=== PATIENT | female | born 1965 | race Caucasian/White ===

== ENCOUNTER 2017-09-28 11:51 | Emergency (ER) | payer OTHER ==
[~2017-09-28] VITALS: Ht 152.4 cm; Wt 47.6 kg
[~2017-09-28 11:51] MED LIST: AMOXICILLIN500 MG PO; CELEXA40 MG PO; COQ-1030 MG PO; DETOX PO; GABAPENTIN300 MG PO; IBUPROFEN800 MG PO; MULTI VITAMIN1 EACH PO; PERCOCET 5-3251 EACH PO; PRILOSEC20 MG PO; PROVERA10 MG PO; SINEMET CR 25-1 EACH PO; TRAZODONE HCL50 MG PO; VICODIN 5-5001 EACH PO
[2017-09-28] MEDS ORDERED: MELATONIN3 M2 PO (12:02)
[2017-09-28] MEDS ORDERED: VITAMIN D350000 UNIT PO (12:03)
[2017-09-28] MEDS ORDERED: XANAX0.25 MG PO (12:07)
== END 2017-09-28 12:35 | disposition home or self-care (01) ==
LOC: ED 11:51
DX: F41.9 Anxiety disorder, unspecified (principal); G20 Parkinson's disease; Z88.2 Allergy status to sulfonamides; Z88.6 Allergy status to analgesic agent; Z88.5 Allergy status to narcotic agent; Z90.89 Acquired absence of other organs; Z98.890 Other specified postprocedural states
CPT/HCPCS: 99282

== ENCOUNTER 2018-05-11 12:14 | Emergency (ER) | payer OTHER ==
[~2018-05-11] VITALS: Ht 152.4 cm; Wt 46.7 kg
[~2018-05-11 12:14] MED LIST changes: +MELATONIN3 M2 PO; +VITAMIN D350000 UNIT PO; +XANAX0.25 MG PO
[2018-05-11] MEDS ORDERED: NORCO 7.5-3251 EACH PO (15:46)
== END 2018-05-11 16:13 | disposition home or self-care (01) ==
LOC: ED 12:14
DX: G12.21 Amyotrophic lateral sclerosis (principal); M54.41 Lumbago with sciatica, right side; Z88.2 Allergy status to sulfonamides; Z88.8 Allergy status to other drugs, medicaments and biological substances; Z88.5 Allergy status to narcotic agent; Z79.899 Other long term (current) drug therapy
CPT/HCPCS: 80053; 81001; 85025; 96360; 96361; 99284; J7030

== ENCOUNTER 2018-06-17 12:32 | Emergency (ER) | payer OTHER ==
[~2018-06-17] VITALS: Ht 152.4 cm; Wt 46.7 kg
--- OUTSIDE RECORDS SUMMARY | ~2018-06-17 | XMS | Encounter Summary ---
Demographics + + + | Address | [address] | | | [place] [address] | + + + | Home Phone | | + + + | Preferred Language | Unknown | + + + | Marital Status | Unknown | + + + | Buddhism Affiliation | Unknown | + + + | Race | Unknown | + + + | Ethnic Group | Unknown | + + + Author + + + | Author | [facility] | | | and [place] | + + + | Organization | [facility] | | | and [place] | + + + | Address | Unknown | + + + | Phone | Unavailable | + + + Support + + +---------+ + | Name | Relationship | Address | Phone | + + +---------+ + | Sam Nino | ALVA | Unknown | | | [place] | | | | + + +---------+ + Care Team Providers + +------+ + | Care Rn Cardiac Cath Name | Role | Phone | + +------+ + | Blanca Durand PA-C | PCP | | + +------+ + Encounter Details +--------+ + + + + | Date | Type | Department | Care Team | Description | +--------+ + + + + | 06/09/ | Ancillary | [facility] | Provider, | | | 2018 | Orders | [facility] | [facility] [address] | | | | | IMAGING | [place] | | | | | [phone] | [place] [address] | | +--------+ + + + + Social History + +-------+ +--------+------+ | Tobacco Use | Types | Packs/Day | Years | Date | | | | | Used | | + +-------+ +--------+------+ | Never Assessed | | | | | + +-------+ +--------+------+ + + + | Sex Assigned at | Date Recorded | | | | + + + | Not on file | | + + + as of this encounter Plan of Treatment Not on fileas of this encounter Results XR Lumbar Spine 4 + Vw (02/23/2018 1125) + + + | Narrative | Performed At | + + + | External films for comparison only | [facility] | | | | | No results will be in the chart. | | + + + + +---------+ + + | Performing | Address | City/State/Zipcode | Phone Number | | Organization | | | | + +---------+ + + | [facility] | | | | + +---------+ + + XR Hip Right 2-3 Views (02/23/20181119) + + + | Narrative | Performed At | + + + | External films for comparison only | [facility] | | | | | No results will be in the chart. | | + + + + +---------+ + + | Performing | Address | City/State/Zipcode | Phone Number | | Organization | | | | + +---------+ + + | [facility] | | | | + +---------+ + + in this encounter Visit Diagnoses Not on filein this encounter"
--- OUTSIDE RECORDS SUMMARY | ~2018-06-17 | XMS | Clinical Summary ---
Demographics + + + | Address | [address] | | | [place] [address] | + + + | Home Phone | | + + + | Preferred Language | Unknown | + + + | Marital Status | Unknown | + + + | Buddhist Affiliation | Unknown | + + + | Race | Unknown | + + + | Ethnic Group | Unknown | + + + Author + + + | Author | [facility] | | | and [place] | + + + | Organization | [facility] | | | and [place]aiseana | [...] Team Providers + +------+ + | Care Safety Technician Name | Role | Phone | + +------+ + | Blanca Durand PA-C | PP | | + +------+ + Allergies Not on File Current Medications Not on file Active Problems Not on file Encounters +--------+ + + + + | Date | Type | Specialty | Care Team | Description | +--------+ + + + + | 06/09/ | Ancillary | | Provider, | | | 2018 | Orders | | [facility] | | +--------+ + + + + | 04/23/ | Telephone | | Justo Aguirre | Other | | 2018 | | | MD Pr[facility] | | +--------+ + + + + from Last 3 Months Social History + +-------+ +--------+------+ | Tobacco [...] on file | | + + + Plan of Treatment + + + + + | Health Maintenance | Due Date | Last Done | Comments | + + + + + | Vaccine: | | | | | Dtap/Tdap/Td (1 - | 7 | | | | Tdap) | | | | + + + + + | Cervical Cancer | | | | | Screening (Pap) | 8 | | | + + + + + | BREAST CANCER | | | | | SCREENING (MAMM Q2 | 8 | | | | YEARS 50-74) | | | | + + + + + | Colorectal Cancer | | | | | Screening | 8 | | | | (Colonoscopy) | | | | + + + + + | Vaccine: Influenza | | | | | (#1) | 8 | | | + + + + + Results Not on filefrom Last 3 Months Insurance + +--------+ +--------+ +---------+ | Payer | Benefi | Subscriber | Type | Phone | Address | | | t Plan | ID | | | | | | / | | | | | | | Group | | | | | + +--------+ +--------+ +---------+ | [employer] | PHP | [id number] | PPO | [phone] | | | PLAN | PERSON | | | [phone] | | | | [place] | | | | | | | OPEN | | | | | | | OPTION | | | | | + +--------+ +--------+ +---------+ | [employer] | MODA | [id number] | Medica | [id number] | | MEDICAID HMO | HEALTH | | id | [id number] | | | | MDCD | | | | | | | HMO [place] | | | | | + +--------+ +--------+ +---------+ + +--------+ +--------+ + + | Guarantor Name | Accoun | Relation to | Date | Phone | Billing Address | | | t Type | Patient | of | | | | | | | | | | + +--------+ +--------+ + + | YORDY NINO | Person | Self [birth year] | Work: | [address] | | | al/[place] | | 1966 | [phone] | [place] [address] | | | [place] | | | [phone]: | | | | | | | | | | | | | | [phone] | | | | | | | [phone] | | + +--------+ +--------+ + +"
--- OUTSIDE RECORDS SUMMARY | ~2018-06-17 | XMS | Clinical Summary ---
Demographics + + + | Address | [address] | | | [place] [address] | + + + | Home Phone | | + + + | Preferred Language | Unknown | + + + | Marital Status | Unknown | + + + | Adventism Affiliation | Unknown | + + + | Race | Unknown | + + + | Ethnic Group | Unknown | + + + Author + + + | Author | [facility] | | | and [place] | + + + | Organization | [facility] | | | and [...] Team Providers + +------+ + | Care Table Cut Off Saw Operator Name | Role | Phone | + [...] +---------+ | [employer] | PHP | [phone] | PPO | [phone] | | | PLAN | PERSON | | | [phone] | | | | [place] | | | | | | | OPEN | | | | | | | OPTION | | | | | + +--------+ +--------+ +---------+ | [employer] | MODA | [id number] | Medica | [phone] | | | MEDICAID HMO | HEALTH [...] | | al/Sung | | 1966 | [phone] | [place] [address] | | | [place] | | | [phone] Home: | | | | | | | | | | | | | | [phone] | | | | | | | [phone] | | + +--------+ +--------+ + +"
--- OUTSIDE RECORDS SUMMARY | ~2018-06-17 | XMS | Encounter Summary ---
Demographics + + + | Address | [address] | | | [place] [address] | + + + | Home Phone | | + + + | Preferred Language | Unknown | + + + | Marital Status | Unknown | + + + | Anabaptist Affiliation | Unknown | + + + | Race | Unknown | + + + | Ethnic Group | Unknown | + + + Author + + + | Author | [facility] | | | and [place] | + + + | Organization | [facility] | | | and [place] | + + + | Address | Unknown | + + + | Phone | Unavailable | + + + Support + + +---------+ + | Name | Relationship | Address | Phone | + + +---------+ + | aSm Nion | ALVA | Unknown | | | [place] | | | | + + +---------+ + Care Team Providers + +------+ + | Care Video Game Developer Name | Role | Phone | + +------+ + | Blanca Durand PA-C | PCP | | + +------+ + Reason for Visit +--------+ + | Reason | Comments | +--------+ + | Other | | +--------+ + Encounter Details +--------+ + + + + | Date | Type | Department | Care Team | Description | +--------+ + + + + | 04/23/ | Telephone | [facility] | Justo Aguirre | Other | | 2017 | | PHYSIATRY [address] | | | | | [place], | [place], [place] | | | | | [place] [address] | [address] | | | | | [phone] | | | +--------+ + + + + [...] Treatment Not on fileas of this encounter Visit Diagnoses Not on filein this encounter"
--- OUTSIDE RECORDS SUMMARY | ~2018-06-17 | XMS | Encounter Summary ---
Demographics + + + | Address | [address] | | | [place] [address] | + + + | Home Phone | | + + + | Preferred Language | Unknown | + + + | Marital Status | Unknown | + + + | Bahai Affiliation | Unknown | + + + | Race | Unknown | + + + | Ethnic Group | Unknown | + + + Author + + + | Author | [facility] | | | and [place] | + + + | Organization | [facility] | | | and [place]ana [...] Team Providers + +------+ + | Care Clinical Exercise Physiologist Name | Role | Phone | + [...] [address] | | | | | [place], | [place], [place] | | | | | [place] [address] | [address] | | | | | [phone] | | | +--------+ + + + [...]
--- OUTSIDE RECORDS SUMMARY | ~2018-06-17 | XMS | Encounter Summary ---
Demographics + + + | Address | [address] | | | [place] [address] | + + + | Home Phone | | + + + | Preferred Language | Unknown | + + + | Marital Status | Unknown | + + + | Mormon Affiliation | Unknown | + + + | Race | Unknown | + + + | Ethnic Group | Unknown | + + + Author + + + | Author | [facility] | | | and [place] | + + + | Organization | [facility] | | | and [place] | [...] Team Providers + +------+ + | Care Raw Silk Grader Name | Role | Phone | + [...] [address] | | | | | [phone] | [place] [address] | | +--------+ + + + + [...]
[~2018-06-17 12:32] MED LIST changes: +NORCO 7.5-3251 EACH PO
== END 2018-06-17 18:35 | disposition home or self-care (01) ==
LOC: ED 12:32
DX: F41.9 Anxiety disorder, unspecified (principal); G20 Parkinson's disease; Z88.2 Allergy status to sulfonamides; Z88.6 Allergy status to analgesic agent; Z88.5 Allergy status to narcotic agent; Z79.899 Other long term (current) drug therapy
CPT/HCPCS: 80053; 81001; 85025; 96361; 96374; 99283; J2060; J7040

== ENCOUNTER 2019-02-12 07:01 | Emergency (ER) | payer BC, OTHER ==
[~2019-02-12] VITALS: Ht 152.4 cm; Wt 56.7 kg
--- OUTSIDE RECORDS SUMMARY | ~2019-02-12 | XMS | Clinical Summary ---
Demographics + + + | Address | [address] | | | [place] [address] | + + + | Home Phone | | + + + | Preferred Language | Unknown | + + + | Marital Status | Unknown | + + + | Baptism Affiliation | Unknown | + + + | Race | Unknown | + + + | Ethnic Group | Unknown | + + + Author + + + | Author | [facility] | | | and [place] | + + + | Organization | [facility] | | | and Blaiseana [...] Team Providers + +------+ + | Care Education Department Chair Name | Role | Phone | + +------+ + | Blanca Durand PA-C | PP | | + +------+ + Allergies Not on File Medications Not on file Active Problems Not on file Social History + +-------+ +--------+------+ | Tobacco [...] on file | | + + + + + + + | Job Start Date | Occupation | Industry | + + + + | Not on file | Not on file | Not on file | + + + + + + + + | Travel History | Travel Start | Travel End | + + + + + + | No recent travel history available. | + + Plan of Treatment + + [...] | + + + + + | Breast Cancer | | | | | Screening (Ages | 8 | | | | 50-74) | | | | + + + + + | Colorectal Cancer | | | | | Screening | 8 | | | | (Colonoscopy) | | | | + + + + + | Vaccine: Zoster (1 | | | | | of 2) | 8 | | | + + + + + | Vaccine: Influenza | | | | | (Season Ended) | 9 | | | + + + + + Results Not on filefrom Last 3 Months Insurance + +--------+ +--------+ +---------+--------+ | Payer | Benefi | Subscriber | Effect | Phone | Address | Type | | | t Plan | ID | kia | | | | | | / | | Dates | | | | | | Group | | | | | | + +--------+ +--------+ +---------+--------+ | [employer] | PHP | [id number] | 10/05/19 | [phone] | | PPO | | PLAN | PERSON | | 18-Pre | 5 | | | | | [place] | | sent | | | | | | OPEN | | | | | | | | OPTION | | | | | | + +--------+ +--------+ +---------+--------+ | [employer] | MODA | [id number] | | [phone] | | Medica | | MEDICAID HMO | HEALTH | | 018-Pr | 1 | | id | | | MDCD | | esent | | | | | | HMO [place] | | | | | | + +--------+ +--------+ +---------+--------+ + +--------+ +--------+ + + | Guarantor Name | Accoun | Relation to | Date | Phone | Billing Address | | | t Type | Patient | of | | | | | | | | | | + +--------+ +--------+ + + | Guera Nino | Person | Self | [birth year] | [address] | | | al/Fam | | 1966 | [phone] | [place] [address] | | | [place] | | | 6 (Home) | | | | | | | [phone] | | | | | | | 0 (Work) | | + +--------+ +--------+ + + Advance Directives Patient has advance care planning documents on file. For more information, please contact:[place] [address]"
--- OUTSIDE RECORDS SUMMARY | ~2019-02-12 | XMS | Clinical Summary ---
Demographics + + + | Address | [address] | | | [place] [address] | + + + | Home Phone | | + + + | Preferred Language | Unknown | + + + | Marital Status | Unknown | + + + | Mormon Affiliation | Unknown | + + + | Race | Unknown | + + + | Ethnic Group | Unknown | + + + Author + + + | Author | [facility] | | | and [place] | + + + | Organization | [facility] | | | and Bla[place]ana [...] Team Providers + +------+ + | Care Bowling Alley Mechanic Name | Role | Phone | + [...] +---------+--------+ | [employer] | PHP | [phone] | 10/05/19 | [phone] | | PPO | | PLAN | PERSON | | 18-Pre | 5 | | | | | [place] | | sent | | | | | | OPEN | | | | | | | | OPTION | | | | | | + +--------+ +--------+ +---------+--------+ | [employer] | MODA | [id number] | | [phone] | | Medica | | MEDICAID HMO [...] | | al/Fam | | 1966 | [phone] | [place] [address] | | | [place] | | | 6 (Home) | | | | | | | [phone] | | | | | | | 0 (Work) | | + +--------+ +--------+ + + Advance Directives Patient has advance care planning documents on file. For more information, please contact:[facility] [place] [address]"
--- OUTSIDE RECORDS SUMMARY | 2019-02-12 07:04 | XMS ---
PreManage Notification: YORDY BELTRE Security Marketing Designer Events No recent Security Events currently on file CRITERIA MET - SAM CARE PROVIDERS Pepito Jane Forest Ranger/Fur Operator 12/31/2018-Current PHONE: [phone] Pepito Jane Primary Care 12/31/2018-Current PHONE: [phone] Rufino has no Care Guidelines for this patient. EMouna VISIT COUNT (12 MO.) 3 TORIE Cohn TOTAL 3 NOTE: Visits indicate total known visits. ED/UCC VISIT TRACKING (12 MO.) 02/12/2019 07:01 [facility] [place] TYPE: Emergency COMPLAINT: - FALL 06/17/2018 12:33 [facility] [place] TYPE: Emergency COMPLAINT: - BODY ACHES DIAGNOSES: - Anxiety disorder, unspecified - Allergy status to narcotic agent status - Other mcc (current) drug therapy - Allergy status to analgesic agent status - Parkinson's disease - Restlessness and agitation - Allergy status to sulfonamides status 05/11/2018 12:15 [facility] [place] TYPE: Emergency COMPLAINT: - NUMBNESS/TINGLING IN ARMS DIAGNOSES: - Allergy status to other drugs, medicaments and biological substances status - Weakness - Amyotrophic lateral sclerosis - Lumbago with sciatica, right side - Allergy status to narcotic agent status - Allergy status to sulfonamides status - Other plastics bench mechanic (current) drug therapy INPATIENT VISIT TRACKING (12 MO.) 01/26/2019 10:12 [facility] [place] TYPE: Neuro Surgery DIAGNOSES: - Spinal stenosis, lumbar region without neurogenic claudication [id number]
[2019-02-12] MEDS ORDERED: CLONAZEPAM1 MG PO (07:19)
[2019-02-12] MEDS ORDERED: NEUPRO1 EAC1 TD (07:19)
== END 2019-02-12 09:47 | disposition home or self-care (01) ==
LOC: ED 07:01
DX: S39.012A Strain of muscle, fascia and tendon of lower back, initial encounter (principal); G20 Parkinson's disease; Z88.2 Allergy status to sulfonamides; Z88.6 Allergy status to analgesic agent; Z88.5 Allergy status to narcotic agent; W01.198A Fall on same level from slipping, tripping and stumbling with subsequent striking against other object, initial encounter
CPT/HCPCS: 72100; 99283

== ENCOUNTER 2019-12-27 12:37 | Emergency (ER) | payer BC, OTHER ==
[~2019-12-27] VITALS: Ht 152.4 cm; Wt 56.7 kg
[~2019-12-27 12:37] MED LIST changes: +CLONAZEPAM1 MG PO; +NEUPRO1 EAC1 TD
--- OUTSIDE RECORDS SUMMARY | 2019-12-27 12:40 | XMS ---
PreManage Notification: YORDY BELTRE Security Cuprous Chloride Helper Events No recent Security Events currently on file CRITERIA MET - SAM CARE PROVIDERS MARGY DIXON Physician Joint Filler Current PHONE: Unknown Pepito Jane Wastewater Design Engineer/Sewing Machine Bobbin Winder 08/05/2019-Current PHONE: [phone] Pepito Jane Primary Care 08/05/2019-Current PHONE: [phone] Rufino has no Care Guidelines for this patient. E.D. VISIT COUNT (12 MO.) 2 TORIE Cohn TOTAL 2 NOTE: Visits indicate total known visits. ED/UCC VISIT TRACKING (12 MO.) 12/27/2019 12:37 [facility] [place] TYPE: Emergency COMPLAINT: - FALL 02/12/2019 07:01 [facility] [place] TYPE: Emergency COMPLAINT: - FALL DIAGNOSES: - Pain in left arm - Fall on same level from slipping, tripping and stumbling with - Allergy status to sulfonamides status - Allergy status to analgesic agent status - Allergy status to narcotic agent status - Strain of muscle, fascia and tendon of lower back, initial en - Parkinson's disease INPATIENT VISIT TRACKING (12 MO.) 01/26/2019 10:12 [facility] [place] TYPE: Neuro Surgery DIAGNOSES: - Spinal stenosis, lumbar region without neurogenic claudicatio [id number]
== END 2019-12-27 14:45 | disposition home or self-care (01) ==
LOC: ED 12:37
DX: S70.02XA Contusion of left hip, initial encounter (principal); G12.21 Amyotrophic lateral sclerosis; Z87.891 Personal history of nicotine dependence; Z88.2 Allergy status to sulfonamides; Z79.899 Other long term (current) drug therapy; W18.30XA Fall on same level, unspecified, initial encounter
CPT/HCPCS: 73502; 96374; 99283-25; A9270; J3010

== ENCOUNTER 2021-06-10 18:40 | Emergency (ER) | payer OTHER, BC ==
[~2021-06-10] VITALS: Ht 152.4 cm; Wt 43.1 kg
--- OUTSIDE RECORDS SUMMARY | 2021-06-10 18:44 | XMS ---
PreManage Notification: YORDY BELTRE Security Bleacher Kraft Pulp Events No recent Security Events currently on file CRITERIA MET - SYBIL CARE PROVIDERS MARGY DIXON Physician Management Specialist Current PHONE: Unknown Pepito Jane Inpatient Coder/Polishing Pad Mounter 04/04/2021-Current PHONE: [phone] Rufino has no Care Guidelines for this patient. [place] VISIT COUNT (12 MO.) Juliann Cohn TOTAL 1 NOTE: Visits indicate total known visits. ED/UCC VISIT TRACKING (12 MO.) 06/10/2021 18:[address] [facility] [place] TYPE: Emergency COMPLAINT: - HEAD LACERATION INPATIENT VISIT TRACKING (12 MO.) No inpatient visits to display in this time frame [email or web address]
== END 2021-06-10 22:25 | disposition home or self-care (01) ==
LOC: ED 18:40
PROC: 0HQ0XZZ Repair Scalp Skin, External Approach (ICD-10-PCS; principal; 2021-06-10)
DX: S01.01XA Laceration without foreign body of scalp, initial encounter (principal); W01.0XXA Fall on same level from slipping, tripping and stumbling without subsequent striking against object, initial encounter; G12.21 Amyotrophic lateral sclerosis; G20 Parkinson's disease; Z87.891 Personal history of nicotine dependence; Z23 Encounter for immunization; Z88.2 Allergy status to sulfonamides; Z88.5 Allergy status to narcotic agent; Z88.8 Allergy status to other drugs, medicaments and biological substances; Z79.899 Other long term (current) drug therapy; Z88.6 Allergy status to analgesic agent
CPT/HCPCS: 12001; 70450; 90471; 90715; 99283-25

== ENCOUNTER 2021-08-20 15:23 | Inpatient (IN) | payer BC, OTHER ==
[~2021-08-20] VITALS: Ht 152.4 cm; Wt 44.8 kg
--- OUTSIDE RECORDS SUMMARY | 2021-08-20 15:26 | XMS ---
PreManage Notification: YORDY BELTRE Security Fusion Analyst Events No recent Security Events currently on file CRITERIA MET - SYBIL CARE PROVIDERS MARGY DIXON Physician Metaphysician Current PHONE: Unknown Pepito Jane Auto Body Detailer/Middle School Band Teacher 04/04/2021-Current PHONE: [phone] Rufino has no Care Guidelines for this patient. [place] VISIT COUNT (12 MO.) 2 TORIE Cohn TOTAL 2 NOTE: Visits indicate total known visits. ED/UCC VISIT TRACKING (12 MO.) 08/20/2021 15:24 [facility] [place] TYPE: Emergency COMPLAINT: - POSS UTI 06/10/2021 18:41 [facility] [place] TYPE: Emergency COMPLAINT: - HEAD LACERATION DIAGNOSES: - Allergy status to analgesic agent - Fall on same level from slipping, tripping and stumbling without subsequent striking against object, initial encounter - Allergy status to narcotic agent - Unspecified injury of head, initial encounter - Encounter for immunization - Allergy status to other drugs, medicaments and biological substances - Other remote computer terminal operator (current) drug therapy - Allergy status to sulfonamides - Personal history of nicotine dependence - Parkinson's disease - Amyotrophic lateral sclerosis - Laceration without foreign body of scalp, initial encounter INPATIENT VISIT TRACKING (12 MO.) No inpatient visits to display in this time frame [id number]
[2021-08-20] MEDS ORDERED: BACLOFEN10 MG PO (17:14)
[2021-08-20] MEDS ORDERED: OMEPRAZOLE20 MG PO (17:15)
[2021-08-20] MEDS ORDERED: QUETIAPINE FUMA25 MG PO (17:15)
[2021-08-20] MEDS ORDERED: AMANTADINE100 MG PO (17:16)
[2021-08-20] MEDS ORDERED: LINZESS72 MCG PO (17:16)
[2021-08-20] MEDS ORDERED: DULOXETINE HCL30 MG PO (17:16)
--- NOTE | 2021-08-20 19:08 | EKG ---
[facility] [address] [facility] [place], [place] [address] Signed Sinus tachycardia Otherwise normal ECG No previous ECGs available Confirmed by HARPAL ISAACS MD ([id number]) on 08/20/2021 7:08:44 PM Electronically Signed By: HARPAL ISAACS MD 08/20/21 1908 PATIENT NAME: YORDY BELTRE Electrocardiogram DATE OF : 69 PHYSICIAN: HARPAL ISAACS MD REPORT #: [id number] REPORT IS CONFIDENTIAL AND NOT TO BE RELEASED WITHOUT AUTHORIZATION
--- NOTE | 2021-08-20 20:55 | NUR ---
PT ARRIVES TO ROOM 127 FROM ED, ADMITTED FOR SEPSIS/UTI. ARRIVES WITH , PT IS AWAKE AND ALERT. ASKS TO GO TO BATHROOM BEFORE GETTING INTO BED, WALKS SELF TO BATHROOM, SBA TO VOID APPROX 25ML THEN HELPED TO POSITION IN BED AND ASSESSMENT DONE. PT IS ASKING ABOUT GETTING HER NORMAL HOME MEDICATIONS, STATES HE LEGS ARE HURTING HER. LUNGS CLEAR, ON ROOM AIR. IVF STARTED, PLAN OF CARE DISCUSSED WITH PT AND HER , PLANS TO STAY THE NIGHT AND PT SEEMS SOMEWHAT ANXIOUS WHEN HE LEFT FOR 5 MINUTES AND WANTS HIM TO REMAIN CLOSE TO HER AND IN HER SIGHT. CALL LIGHTIN REACH.
--- NOTE | 2021-08-20 21:44 | NUR ---
CALL TO DR ISAACS TO UPDATE HER RE BP'S, ORDER GIVEN FOR 1L LR BOLUS. ORDER ALSO GIVEN FOR 10MEQ KCL RIDER. PT HAS GOTTEN UP AND VOIDED SCANT AMOUNTS TWICE SINCE ARRIVAL.
--- NOTE | 2021-08-20 23:00 | NUR ---
LR BOLUS COMPLETE, PT C/O NAUSEA, 4MG IV ZOFRAN GIVEN. PT VERY SLEEPY, REMAINS IN ROOM.
--- NOTE | 2021-08-20 23:26 | NUR ---
CALL TO DR ISAACS WITH LOWER BP'S, LAST BP 73/53 MAP 61, ORDER GIVEN TO TELMA RODRIGUEZ GTT.
--- NOTE | 2021-08-20 23:26 | NUR ---
CALL TO DR ISAACS WITH LOWER BP'S, LAST BP 73/53 MAP 61, ORDER GIVEN TO START LEVOPHED GTT.
--- NOTE | 2021-08-21 | NUR ---
BP'S CONTINUE TO BE 70'S OVER 50'S, LAST BP 77/57 MAP 63, LEVOPHED GTT TURNED UP TO 5MCG/MIN. HR 80'S, PT CONT TO SLEEP. SPO2 95% ON 2L/O2.
--- NOTE | 2021-08-21 00:29 | NUR ---
BP'S HAVE IMPROVED, LAST BP 102/68 MAP 79 AND HR 92. PT REMAINS SLEEPING.
--- NOTE | 2021-08-21 01:02 | NUR ---
LEVOPHED GTT TITRATED UP TO 10MCG/MIN.
--- NOTE | 2021-08-21 01:41 | NUR ---
PT CALLED TO USE BSC, UP TO VOID 300ML THEN BACK TO BED. UP UP TO 115. PT VERY DROWSY, MUMBLING AND SLURRING WORDS, EYES REMAIN SHUT WHILE UP. LAST BP 83/61, MAP 68 AND HR 110-115'S.
--- NOTE | 2021-08-21 04:20 | NUR ---
PT CALLS TO USE BSC, UP TO VOID 300ML CLEAR URINE AND THEN BACK TO BED, HR 110 WHILE UP. ASSESSMENT DONE, UNCHANGED FROM PREVIOUS.
--- NOTE | 2021-08-21 04:33 | NUR ---
POSITIVE BLOOD CULTURE RESULTS CALLED TO DR ISAACS, VERIFIED THAT SHE HAS ORDERS FOR ROCEPHIN, NO NEW ORDERS AT THIS TIME.
--- NOTE | 2021-08-21 04:54 | NUR ---
UP TO BSC AGAIN TO VOID 50ML, BACK TO BED. PT ASKS IF SHE CAN SIT UP AND WATCH TV, ASSISTED WITH TURNING ON TV ALTHOUGH SHE JUST LIES BACK WITH EYES CLOSED.
--- NOTE | 2021-08-21 05:15 | NUR ---
UP TO BSC TO VOID 100ML THEN BACK TO BED.
--- NOTE | 2021-08-21 05:32 | NUR ---
LAB IN TO DRAW
--- NOTE | 2021-08-21 07:30 | NUR ---
REPORT RECIEVED. PATIENT LAYING IN BED, IN ROOM. ASSISTED PATIENT TO COMMODE. VOIDED 40 ML OF CLEAR YELLOW URINE, BACK TO BED WITH ASSIST. C/O BACK PAIN, C/O RIGHT UPPER CHEST DISCOMFORT. VERY TEARY AND EMOTIONAL. HAVING DIFFICULTY TRACKING. DROOLING, FAMILY MEMBERS ARE IN ROOM, HELPING PATIENT WITH SECRETIONS. TALKED WITH FAMILY AND PATIENT ABOUT POC FOR DAY.
--- NOTE | 2021-08-21 08:00 | NUR ---
ASSESSMENT DONE. LUNGS ARE DIM ON RIGHT SIDE, O2 SAT ON RA HIGH 90'S . DENIES SHORTNESS OF BREATH. ABD IS MILDLY DISTENDED. HOLDING BREAKFAST.
[2021-08-21] MEDS ORDERED: CARBIDOPA-LEVO1 EAC1 PO (08:48)
--- NOTE | 2021-08-21 09:20 | NUR ---
ROUTINE MEDICATIONS GIVEN. WAS ABLE TO SWALLOW W/O CHOKING. UP TO COMMODE AGAIN TO VOID 100 ML OF CLEAR YELLOW URINE. DENIES PAINFUL URINATION. NORCO 7.5/325 PO GIVEN FOR PAIN. LEVOPHED 2 MCG/MIN IV INFUSING, WILL TITRATE PRN. FAMILY MEMBERS REMAIN IN ROOM AND HELPING WITH PATIENT. PATIENT REMAINS VERY EMOTIONAL.
--- NOTE | 2021-08-21 10:27 | NUR ---
THIS SILVER PLATER IN ROOM TO ASSIST PATIENT TO BSC. 2 FAMILY MEMBERS AT BEDSIDE AND ASSISTING WELL. PATIENT IS IMPULSIVE BUT ABLE TO STAND WITH ASSISTANCE. NEW DRAW SHEET AND PILLOWCASE PROVIDED. KPAD ALSO AT BEDSIDE WHEN NEEDED.
--- NOTE | 2021-08-21 10:49 | NUR ---
CALMER AT THIS TIME. RESTING WITH HOB ELEVATED. LEVOPHED REMAINS AT 2 MCG/MIN.
--- NOTE | 2021-08-21 11:30 | NUR ---
INCREASED RESTLESSNESS. TRYING TO GET OOB. FAMILY MEMBER ATTEMPTING TO CALM PATIENT AND KEEP HER IN BED. PATIENT IS NOT AWARE OF PLACE, TIME, EVENT. CALLS OUT HUSBANDS NAME, SHE THINKS SHE IS AT HOME. IS VERY DIFFICULT TO CONSOLE AND DIRECT. TAKING PO FLUIDS POOR. USING YANKER TIP TO SUCTION ORAL SECRETIONS PRN.
--- NOTE | 2021-08-21 12:00 | NUR ---
NO CHANGES IN ASSESSMENT.
--- NOTE | 2021-08-21 14:06 | NUR ---
CAME TO CCU TO CHECK ON PT. FAMILY MEMBER IN WITH PT- HAD BEEN HERE ALL NIGHT AND RETURNED HOME TO REST. I AM FAMILIAR WITH THIS PT, WORKED TO CALM HER. SHE IS AGGITATED, RESTLESS AND HARD TO UNDERSTAND. GAVE P.SHAWL AND SUFFED ANIMAL FOR COMFORT. PT WANTS TO BE AT HOME, PANCHO CALDWELL EXPLAINING TO PT HOW IMPORTANT IT IS SHE REMAIN FOR CONTINUED CARE. PT MUMBLES, FAMILY HELPFUL IN HELPING TO CARE AND CALM PT. HAD PRAYER WITH PT, WILL CONTINUE TO FOLLOW
--- NOTE | 2021-08-21 14:38 | NUR ---
THIS RN TO ROOM TO ASSIST PANCHO CALDWELL. VITAL SIGNS ASSESSED, TEMPERATURE NOTED TO BE 100.0. PT REPORTS 7/10 PAIN. AGIATED WITH CARES. FAMILY AT BEDSIDE. CHAPALIN TO BEDSIDE TO VISIT WITH PT AND FAMILY. NO ADDITIONAL REQUESTS OR COMPLAINTS. CALL LIGHT WITHIN REACH.
--- NOTE | 2021-08-21 14:39 | NUR ---
CALL LIGHT ANSWERED, THIS LOADER OPERATOR SUPERVISOR IN TO ASSIST PATIENT TO BSC. FAMILY AT BEDSIDE. PATIENT ABLE TO STAND WITH HEAVY ASSISTANCE AND SEVERAL CUES. PATIENT FEELS VERY WARM TO THE TOUCH. RECTAL TEMP OF 100.0 TAKEN BY PANCHO CALDWELL. CALL LIGHT AND PERSONAL ITEM NEARBY
[2021-08-21] MEDS ORDERED: DULOXETINE HCL60 MG PO (15:01)
[2021-08-21] MEDS ORDERED: HYDROCODON-ACE1 EAC8 PO (15:06)
[2021-08-21] MEDS ORDERED: DICLOFENAC SOD100 G1 TOP (15:07)
[2021-08-21] MEDS ORDERED: TRAZODONE HCL100 MG PO (15:08)
--- NOTE | 2021-08-21 15:08 | NUR ---
CHECKING ON PT-FAMILY AND RN JAVI TRYING TO GIVE PT MEDS-SHE IS REFUSING. SAID SHE DOES NOT WANT TO GET HIGH. SUCTION USED TO CLEAR PT'S MOUTH AND THROAT, SHE CONSENTED TO TAKE MEDS. WANTS TO GET DRESSED, MUMBLES OFTEN, OFTEN MAKES NO SENSE. WORKED TO CALM PT, HAD PRAYER AND GAVE COMFORT. WILL CONTINUE TO FOLLOW
--- NOTE | 2021-08-21 16:45 | NUR ---
NO CHANGES, FAMILY REMAIN IN ROOM. CONTINUES TO BE OFF OF LEVOPHED GTT.
[2021-08-21] MEDS ORDERED: NUPLAZID34 MG PO (18:19)
[2021-08-21] MEDS ORDERED: IBUPROFEN600 MG PO (18:22)
--- NOTE | 2021-08-21 19:00 | NUR ---
UP TO COMMODE TO VOID, THEN BACK TO BED. REPORT TO NEXT SHIFT.
[2021-08-21] MEDS ORDERED: NEUPRO1 EAC5 TOP (19:08)
--- NOTE | 2021-08-21 19:41 | NUR ---
Medications reconciled using pharmacy records and patient's med list from home. Per Dr Leonard, I have changed the ordered medications to reflect home dosing
--- NOTE | 2021-08-21 19:42 | NUR ---
Patient will be using her own Neupro patch and Nuplazid
--- NOTE | 2021-08-21 21:11 | NUR ---
PT RESTING QUIETLY IN BED. WAKES TO LIGHT STIMULATION. DISORIENTED TO SITUATION AND DROWSY. PT NEEDS FREQUENT DIRECTION FOR MEDICATION ADMINISTRATION. REMAINS AT BEDSIDE. BED ALARM ON. WILL CONTINUE TO TR.
--- NOTE | 2021-08-21 22:07 | NUR ---
PT REMAINS RESTING QUIETLY IN BED. VITALS STABLE. WILL CONTINUE TO MONITOR.
--- NOTE | 2021-08-21 23:55 | NUR ---
PT NOTED TO HAVE INCREASED HR TO HIGH 120S LOW 130S. RR INCREASED TO LOW 30S. PT WITH GENERALIZED SHAKING AND REPORTS FEELING COLD. INITIAL TEMP 97.7. BP ELEVATED AT 150/128, HOWEVER D/T PT CONDITION BP IS LIKELY NOT ACCURATE. AFTER 30 MINUTES SHAKING STOPPED AND FEVER OF 101.9 AXILLARY DEVELOPED. PT PAINFUL AND GIVEN NORCO 7.5/325 TAB, RN WILL REASSESS FEVER AND ADMINISTER PRN TYLENOL IF INDICATED. CURRENT BP 117/55, HR 123, RR 21, O2 96% ON RA. PT IS HALLUCINATING AND DISORIENTED X3. HOLLERS OUT FOR FAMILY WHO IS NOT HERE AND IS NOT REDIRECTABLE. PT TOILETED AND SHAYY CARE PROVIDED. BED ALARM ON. WILL CONTINUE TO MONITOR.
--- NOTE | 2021-08-22 02:00 | NUR ---
RN AT [facility] FOR 1:1 OBSERVATION. NO CHANGE IN PT CONDITION.
--- NOTE | 2021-08-22 03:00 | NUR ---
PT NOW RESTING QUIETLY WITHOUT PULLING AT LINES AND LINENS. BED ALARM ON. 30 MINUTE ROUNDING IMPLEMENTED AT THIS TIME FOR PT SAFETY.
--- NOTE | 2021-08-22 03:02 | NUR ---
RN REMAINS AT BEDSIDE FOR PT SAFETY. PT CONTINUES TO PICK AT LINES, LINENS, AND TALKS TO OTHERS NOT PRESENT IN ROOM.
--- NOTE | 2021-08-22 04:00 | NUR ---
PT STILL RESTING QUIETLY EYES CLOSED. SBPs DECREASED TO 80s WHILE SLEEPING WITH MAPS MAINTAINED ABOVE 65. RN CONTINUES 30 MINUTE ROUNDING
--- NOTE | 2021-08-22 05:30 | NUR ---
PT WOKE AND CONTINUED TO BE DISORIENTED, HOWEVER SHE IS REDIRECTABLE AND NOT PULLING AT LINES. UP TO BSC, LABS DRAWN, AND MORNING MEDICATIONS GIVEN. PT NOW BACK TO SLEEP WITH BED ALARM ON.
--- NOTE | 2021-08-22 06:39 | NUR ---
PT REMAINS ASLEEP. FAMILY ARRIVED AND WAS UPDATED ON PT'S NIGHT. BED ALARM ON. WILL CONITINUE TO [facility].
--- NOTE | 2021-08-22 07:30 | NUR ---
RECEIVED REPORT AT 0700. PT IN ROOM RESTING WITH FAMILY AT BEDSIDE.
--- NOTE | 2021-08-22 08:15 | NUR ---
WITH ASSESSMENT IT WAS NOTED THAT PT WAS NOT REALLY RESPONSIVE. PT HAS ORBITAL EDEMA, EDEMA AROUND HER MANDIBLE. TOUNGE IS OF NORMAL SEIZE, NO STRIDOR OR GURGLING NOTED IN BACK OF THROAT. NO SECRETIONS NOTED WHEN SUCKTIONING PT IN MOUTH. PT HOWEVER DOES AT TIMES SOUND LIKE THERE MAY BE SOME LOOSE MATERIAL IN HER AIRWAY. UPPER LOBES CLEAR, LOWER LOBES HAVE CRACKLES PRESENT. ABD IS MILDLY DISTENDED, ABD SEEMS TENDER TO TOUCH. PT MOAND A BIT WHEN PRESSURE WAS APPLIED. PT HAS GENERALIZED BILATERA HAND, ARM, LEG EDEMA PRESENT, WE ARE TRYING TO REMOVE RINGS FROM HER FINGERS DUE TO EDEMA PRESENT.
--- NOTE | 2021-08-22 08:45 | NUR ---
0835 HAS NOT BEE ON PULSE OX SINCE BEFORE START OF THIS SHIFT. WHEN PT WAS PUT ON PULSE OX, O2 SATS WERE 69% WITH A GENUINE WAVE FORM. PT WAS PUT ON 15L O2 NON-REBREATHER. O2 SATS CAME BACK UP FAST. I DID AN ROOM AIR TRIAL AND PT STARTED TO DESAT ONCE MORE TO 86% O2 SATS ON RA. MD ISAACS WAS CALLED AT 0844 AND AN ORDER FOR A CHEST X-RAY AND LASIX 20MG IV WAS ENTERED BY HER.
--- NOTE | 2021-08-22 09:01 | NUR ---
TO UNIT TO FOLLOW UP WITH PATIENT. HARIKA RN AT BEDSIDE ATTEMPTING PATIENT CARES. PATIENT APPEARS TO RESTING WITH NON REBREATHER IN PLACE, XR LEAVING THE ROOM AT THIS TIME. WILL RETURN TO FOLLOW UP WITH PATIENT WHEN AVAILABLE.
--- NOTE | 2021-08-22 09:15 | NUR ---
DEVINE ORDER OBTAINED FROM MD ISAACS. NO ABG SO FAR. PT AT THIS TIME 3L O2 OXY MASK AND DOING WELL.
--- NOTE | 2021-08-22 11:47 | NUR ---
GCS OF 6 AT THIS TIME. THE SAME WAS NOTED WITH MORNING ASSESSMENT. RT IN ROOM STARTING PT ON BI-PAP, ABG DRAWN AND SENT TO LAB.
--- NOTE | 2021-08-22 12:43 | NUR ---
PT AT THIS TIME STILL IS AMS. PT HOWEVER IS FOLLOWING COMMANDS FAR A SQUIZZING MY FINGERS ETC. V/S WDL, PT REMAINS ON BI-PAP 20/05, FIO2 35%. UPPER LOBES CLEAR, LOWER LOBES CRACKLES. PERPH. EDEMA REMAINS UNCHANGED. ABD SOUNDS STILL HYPOACTIVE, ABD STILL DISTENDED. WILL CONTINUE TO MONITOR.
--- NOTE | 2021-08-22 14:00 | NUR ---
STATUS OF PT UNCHANGED. PT REMAINS ON BI-PAP AND DOING WELL WITH IT. PT STILL NOT ALERT. URINE OUPUT IS WDL. V/S OVERALL WDL. WILL CONTINUE TO MONITOR.
--- NOTE | 2021-08-22 14:12 | NUR ---
CONNECTED WITH PT'S CATHY. HE WAS HEADING HOME TO CONNECT WITH THEIR SONS AND UPDATE THEM ON PT'S CONDITION.HE STATED IT IS HARD TO DO THIS THRU TEXTING. THIS HAS BEEN EMOTIONAL FOR HIM, THANKFUL FOR FAMILY THAT HAS BEEN HERE.GAVE ENCOURAGEMENT,GAVE SUPPORT WITH FAMILY IN RM. PT ON O2 MASK. WILL CONTINUE TO FOLLOW
--- NOTE | 2021-08-22 16:10 | NUR ---
GSC NOW A 13. PT IS STARTING TO WAKE UP. PT ALSO NOW ON ROOM AIR WITH O2 SATS 90%- 92%. PT IS OPENING HER EYES SPONTANEOUSLY. PT STILL HAS GARBLED SPEECH BUT AT LEAST SOME OF THE TIMES HER SPEECH IS CLEAR AND ORIENTED. OVERALL STRENGTH +4, UPPER LOBES CLEAR, LOWER LOBES DIMINSHED. V/S WDL OVERALL, URINE OUPUT ADEQUATE. ABD SOUNDS STILL HYPOACITVE AND PT HAS NOT HAD A BM SO FAR. PERIPH EDEMA IS UNCHANGED AND SO IS HER ORBITAL EDEMA.
--- NOTE | 2021-08-22 17:10 | NUR ---
PT SALINE LOCKED AT THIS TIME ORDERED PER MD GTZ. PT READY FOR CT SCAN.
--- NOTE | 2021-08-22 18:43 | NUR ---
PT IS STILL SOMEWHAT DROWSY AND ALERT/ ORIENTED AT TIMES. PT IS ABLE TO SWALLOW WITHOUT ISSUES AT ALL. BOTH GASTRO- GRAFIN HAVE BEEN GIVEN. PT TO CT AT 1945.
--- NOTE | 2021-08-22 19:45 | NUR ---
PATIENT DOWN TO CT. PATIENT TOLERATED WELL. REPORTS SEVERE PAIN. TOLERATED ROOM AIR FOR TRANSFER. ALERT AND ORIENTED. 2030 PATIENT RETURNED TO THE ROOM, ABLE TO HAVE SMALL CONVERSATIONS. PATIENT DIFFICULT TO VERBALLY UNDERSTAND AT BASELINE ACCORDING TO THE FAMILY. PRN PAIN MEDS PROVIDED WITH EVENING MEDS. PATIENT'S HASBAND ASSIST WITH CARES PER PATIENT'S REQUEST. PATIENT ON 2L NC DUE TO SATS 86% WHEN RESTING. BREATHING IS SHALLOW, LUNGS ARE CLEAR IN UPPER LOBES, DIM IN THE BASES. ABD IS SOFT BUT TENDER. BOWEL SOUNDS HYPOACTIVE. VS STABLE. DEVINE IS PAINFUL TO PATIENT AND SHE WOULD LIKE REMOVED. REPOSITIONED AND PROVIDED PLENTY OF SLACK TO PREVENT PULLING. CLOWDY URINE NOTED WITH LARGE AMOUNTS OF SEDIMENT. UA SENT. PATIENT POSITIONED FOR COMFORT. FAMILY AT BEDSIDE.
--- NOTE | 2021-08-22 21:00 | NUR ---
PATIENT UP TO BSC TO HAVE BM. MEDIUM STOOL NOTED, SOME FORMED AND SOME LIQUID. PATIENT'S SHAYY AREA IS SORE. BARRIER CREAM APPLIED. PATIENT WAS NOT WILLING TO PARTICIPATE IN TRANSFER TO BSC AND WAS HEAVY 1 PERSON ASSIST. PATIENT REUTNED TO BED AND UNDER INSTRUCTIONS FROM HER WAS ABLE TO WALK 3-4 STEPS WITH ASSIST FROM THIS RN AND SIT IN BED. POSITIONING HERSELF TO HER LEFT SIDE. PUSH CALL LIGHT PROVIDED.
--- NOTE | 2021-08-22 22:30 | NUR ---
PATIENT SLEEPING SOUNDLY. VS STABLE. IS LEAVING FOR THE NIGHT. BED ALARM ACTIVE. CALL LIGHT IN REACH.
--- NOTE | 2021-08-22 23:58 | NUR ---
PATIENT ATTEMPTING TO EXIT BED. REPEATEDLY PULLING AT DEVINE AND MONITOR LEADS. PATIENT NOT FOLLOWING INSTRUCTIONS AND DOES NOT ANSWER QUESTIONS. PATIENT APPEARS TO BE ORIENTED. DISCUSSED WITH MD, CURRENT VS STABLE. ONE TIME DOSE OF ATIVAN ORDERS.
--- NOTE | 2021-08-23 00:15 | NUR ---
ATIVAN IV ADMINISTERED. PATIENT ALLOWED FOR REPOSITIONING AND VS BUT CONTINUES TO TRY TO SCRATCH THIS RN AND PULL GOWN OFF. ENCORUAGED PATIENT TO REST. RN AT BEDSIDE FOR SEVERAL MINS. PATIENT RESTING WITH EYES CLOSED IN SAFE POSITION ON THE BED. RN REEVALUATED AFTER SEVERAL MINS AND PATIENT WAS CONTINUING TO REST WITH EYES CLOSED. VS STABLE. ALLOWED PATIENT TO REST.
--- NOTE | 2021-08-23 01:30 | NUR ---
patient appears to be sleeping soundly. vs stable.
--- NOTE | 2021-08-23 03:15 | NUR ---
PATIENT CONTINUES TO SLEEP SOUNDLY. VS STABLE. GOOD URINE OUTPUT. 2L NC IN USE. O2 SATS >88%. ALLOWED PATIENT TO REST.
--- NOTE | 2021-08-23 04:15 | NUR ---
UPDATE PROVIDED TO PATIENT'S NEICE, WHO WILL BE IN LATER THIS MORNING. NO CHNAGES. PATIENT CONTINUES TO REST. VS STABLE.
--- NOTE | 2021-08-23 06:54 | NUR ---
PATIENT DEVINE EMPTIED. PATIENT IS SAYING A FAMILY MEMBERS NAME. WHEN RN TALKS TO THE PATIENT SHE TURNS AWAY FROM STAFF AND IS QUIET. DOES NOT ANSWER QUESTIONS. DISCUSSED PLAN OF CARE. OFFERED SIPS OF WATER. PATIENT HAS CALL LIGHT ON THE BEDRAIL. 2L NC IN PLACE. VS STABLE.
--- NOTE | 2021-08-23 07:52 | NUR ---
PT AT THIS TIME IS AWAKE. SPEECH GARBLED BUT MOSTLY UNDERSTANDABLE. PUPILS WDL. V/S WDL, URINE OUTPUT WDL. URINE HOWEVER IS A BIT CLOUDY. UPPER LOBES CLEAR, LOWER LOBES DIMINISHED WITH OCCASIONAL CRACKLES PRESENT. WHILE AWAKE PT CAN BE ON ROOM AIR. WHILE SLEEPING PT DOES NEED 2-4L O2 VIA NC. AABDOMEN STILL MILDLY DISTENDED BUT NON-TENDER TO TOUCH. BOWEL TONES ARE NORMAL ACTIVE AT THIS TIME. PT HAD A BM FOR NIGH SHIFT. PERIPH. EDEMA IN HANDS AND FEET UNCHANGED. PT ALSO STILL HAS ORBITAL EDEMA PRESENT. PT STATED THAT SHE HAS A HEADACHE. PRN NORCO GIVEN. FAMILY NOW AT BEDSIDE.
--- NOTE | 2021-08-23 09:11 | NUR ---
PT STATED THAT HER HEADACHE IS BETTER AT THIS TIME. NEURO PATCH NOT BROUGHT IN BY AT THIS TIME. HE WILL BE HERE AT 0930. URINE HAS SOME SEDIMENT PRESENT, URINE OUTPUT IS WDL SO FAR.
--- NOTE | 2021-08-23 10:50 | NUR ---
PT SLEEPING ON AND OFF, WHEN AROUSED, SPEECH IS GARBLED. FAMILY AT BS VERY HELPFUL WITH PT CARE. DR GTZ TO TRANSFER PT, WAITING FOR LOCATION. CATHY HAS GONE HOME TO PACK. HAD PRAYER, GAVE COMFORT AND WILL FOLLOW
--- NOTE | 2021-08-23 11:00 | NUR ---
PT RESTING IN BED. FAMILY AT BEDSIDE. NO NEW CONCERNS NOTED. PT TO TRANSFER.
--- NOTE | 2021-08-23 12:00 | NUR ---
PT TO TRANSFER TO [facility]. NO NEW CONCERNS NOTED WITH PT AT THIS TIME. SECOND ASSESSMENT HAD NOT NEW ISSUES.
--- NOTE | 2021-08-23 13:15 | NUR ---
PT LEFT CCU WITH [facility] AT 1311. REPORT CALLED AT THIS TIME. PANCHO JUAN HAS RECIEVED REPORT FROM ME.
== END 2021-08-23 13:15 | disposition short-term general hospital (02) | DRG 871 ==
LOC: ED 15:23 → CCU 19:48
PROVIDERS: ADMIT Internal Medicine; ATTEND Internal Medicine
DX: A41.50 Gram-negative sepsis, unspecified (principal); G93.41 Metabolic encephalopathy; J96.01 Acute respiratory failure with hypoxia; N13.6 Pyonephrosis; G12.21 Amyotrophic lateral sclerosis; J98.11 Atelectasis; J90 Pleural effusion, not elsewhere classified; Z66 Do not resuscitate; Z20.822 Contact with and (suspected) exposure to COVID-19; R65.20 Severe sepsis without septic shock; G31.83 Neurocognitive disorder with Lewy bodies; F02.80 Dementia in other diseases classified elsewhere, unspecified severity, without behavioral disturbance, psychotic disturbance, mood disturbance, and anxiety; D64.9 Anemia, unspecified; G89.29 Other chronic pain; F51.04 Psychophysiologic insomnia; Z88.2 Allergy status to sulfonamides; Z88.5 Allergy status to narcotic agent; Z88.6 Allergy status to analgesic agent; D70.9 Neutropenia, unspecified; Z98.890 Other specified postprocedural states; Z79.899 Other long term (current) drug therapy
CPT/HCPCS: 36600; 71045; 74177; 80048; 80053; 80500; 81001; 82803; 83605; 85007; 85025; 87040; 87077; 87088; 87186; 93005; 93010; 94660; 96365; 99285-25; A9270; J0696; J1650; J1940; J2060; J2405; J3480; J7120; J7121; Q9967; U0003